=== PATIENT | male | born 1980 | race African-American/Black ===

== ENCOUNTER 2020-06-11 17:47 | Emergency (ER) | payer OTHER ==
[~2020-06-11] VITALS: Ht 193 cm; Wt 75.0 kg
[2020-06-11 17:58] VITALS: BP 127/87
== END 2020-06-11 21:00 | disposition home or self-care (01) ==
LOC: ER 17:47
DX: Z59.0 Homelessness (principal); F43.10 Post-traumatic stress disorder, unspecified; Z91.410 Personal history of adult physical and sexual abuse; Z98.890 Other specified postprocedural states
CPT/HCPCS: 99283